=== PATIENT | female | born 1965 | race African-American/Black ===

== ENCOUNTER 2021-03-14 14:40 | Outpatient (CLI) | payer MEDICARE, MEDICAID, SELFPAY ==
--- NOTE | ~2021-03-14 | XR_ITS ---
EXAMINATION: XR knee RT min 4V DATE: 03/14/2021 15:17 INDICATION: Right knee pain TECHNIQUE: Weight bearing anteroposterior and Tate, sunrise, and flexed lateral views of the rig ht knee were obtained COMPARISON: None. FINDINGS: 3-4 mm lateral patellar subluxation. Alignment is otherwise normal. No fracture. Tricompartmental os teoarthritis characterized by nonuniform joint space narrowing and small marginal osteophytes. The marcello int space narrowing is moderate to severe in the lateral compartment best appreciated on the lateral and Tate projections. Some subarticular cystic change along the lateral tibial plateau. Mild humera nt space narrowing in the patellofemoral compartment. Soft tissues are unremarkable. No right knee marcello int effusion. IMPRESSION: 1. Right knee tricompartmental osteoarthritis, moderate to severe in the lateral compartment. Reviewed, dictated and finalized at location A. IMPRESSION: 1. Right knee tricompartmental osteoarthritis, moderate to severe in the latera l compartment.
--- NOTE | ~2021-03-14 | XR_ITS ---
EXAMINATION: XR knee LT min 4V DATE: 03/14/2021 15:17 INDICATION: Left knee pain TECHNIQUE: Weight bearing anteroposterior and Tate, sunrise, and flexed lateral views of the lef t knee were obtained COMPARISON: None. FINDINGS: Mild genu varus and slight lateral subluxation of the tibial plateau relative to the femoral condyles . There is also 5 mm lateral patellar subluxation. No fracture. Tricompartmental osteoarthritis herman cterized by nonuniform joint space narrowing and marginal osteophytes. The joint space narrowing is m oderate to severe in the medial compartment and mild to moderate in the patellofemoral compartment. T here is irregular cortical contour suggesting subarticular cystic change at the lateral trochlea. No left knee joint effusion. IMPRESSION: 1. Tricompartmental osteoarthritis at the left knee, moderate to severe in the medial compartment. Reviewed, dictated and finalized at location A.
--- NOTE | ~2021-03-14 | XR_ITS ---
EXAMINATION: XR lumbar spine 2-3V DATE: 03/14/2021 15:16 INDICATION: Low back pain TECHNIQUE: Anteroposterior and lateral views of the lumbar spine, and cone-down lateral view of the l umbosacral junction were obtained. COMPARISON: Lumbar spine radiographs dated 08/08/2016 and MRI dated 05/31/2016 FINDINGS: 10 degrees lumbar dextroscoliosis. Visualization of the lumbosacral junction is poor on the lateral p rojections to in part to body habitus. There appears to be approximately 12 mm anterolisthesis L5 on S1 along with an L5 compression fracture with approximately 50% posterior vertebral body height loss. Both findings appear chronic and not significantly changed since MRI dated 05/31/2016. Chronic bilate ral L5 pars interarticularis defects also better appreciated on prior MRI. Severe disc height loss at L5-S1. Mild to moderate disc height loss at L3-L4 and L4-L5. Moderate lower lumbar facet osteoarthri tis. Sacrum and bilateral sacroiliac joints are unremarkable. IMPRESSION: 1. Chronic bilateral L5 pars intra-articular is defects with 12 mm anterolisthesis L5 on S1 and chron ic posterior L5 compression fracture. 2. Severe lower lumbar spondylosis. Reviewed, dictated and finalized at location A. IMPRESSION: 1. Chronic bilateral L5 pars intra-articular is defects with 12 mm anterolisthe sis L5 on S1 and chronic posterior L5 compression fracture. 2. Severe lower lumbar spondylosis.
== END 2021-03-14 14:41 | disposition home or self-care (01) ==
LOC: ANHIMG 14:48
PROVIDERS: PCP Family Medicine Adolescent Medicine; Visit Provider Physician Assistant
DX: M47.896 Other spondylosis, lumbar region (principal); M17.0 Bilateral primary osteoarthritis of knee
CPT/HCPCS: 72100; 73564

== ENCOUNTER 2021-03-19 17:02 | Outpatient (CLI) | payer MEDICARE, MEDICAID, SELFPAY ==
--- NOTE | ~2021-03-19 | MM_ITS ---
EXAMINATION: MM screening chevy BI w lexy HISTORY: Screening TECHNIQUE: Craniocaudal and mediolateral oblique 3-D tomosynthesis images were obtained and synthetic 2-D images were generated. CAD analysis was submitted and interpreted. COMPARISON: No prior mammogram is available for comparison at this institution. BREAST PARENCHYMAL COMPOSITION: Breast composed of scattered areas of fibroglandular density. FINDINGS: There are multiple bilateral breast masses primarily involving the lateral aspect of both b reasts. There are no suspicious calcifications. No architectural distortion. IMPRESSION: 1. Multiple bilateral breast masses on superimposed fatty background. 2. Recommend bilateral breast ultrasound. BI-RADS Category 0: Incomplete: Needs additional imaging evaluation. Reviewed, dictated and finalized at location A.
== END 2021-03-19 17:03 | disposition home or self-care (01) ==
LOC: ANHIMG 17:06
PROVIDERS: PCP Family Medicine Adolescent Medicine; Visit Provider Physician Assistant
DX: Z12.31 Encounter for screening mammogram for malignant neoplasm of breast (principal)
CPT/HCPCS: 77063; 77067

== ENCOUNTER 2021-03-29 12:26 | Outpatient (CLI) | payer MEDICARE, MEDICAID, SELFPAY ==
--- NOTE | ~2021-03-29 | US_ITS ---
EXAMINATION: US breast BI limited HISTORY: Bilateral breast masses on screening mammogram TECHNIQUE: Limited bilateral breast ultrasound is performed. COMPARISON: Mammogram, 03/19/2021 FINDINGS: Right breast: There are multiple masses in the outer right breast with sonographic features consisten t with intramammary lymph nodes. No suspicious cystic or solid mass is identified. Left breast: There are multiple masses in the upper outer quadrant of the left breast sonographic fea tures consistent with intramammary lymph nodes. There is a 1.2 x 0.6 cm mass versus fibroglandular ti ssue at the 3:00 location 6 cm from the nipple. IMPRESSION: Bilateral breast lymph nodes accounting for all but one of the mammographic findings in question. Pos sible mass versus fibroglandular tissue at the 3:00 location in the left breast. Follow-up left diagn ostic mammogram and ultrasound in six months are recommended. BI-RADS category 3, probably benign findings. Reviewed, dictated and finalized at location A. IMPRESSION: Bilateral breast lymph nodes accounting for all but one of the mammographic fin dings in question. Possible mass versus fibroglandular tissue at the 3:00 locat ion in the left breast. Follow-up left diagnostic mammogram and ultrasound in s ix months are recommended. BI-RADS category 3, probably benign findings.
== END 2021-03-29 12:27 | disposition home or self-care (01) ==
PROVIDERS: PCP Family Medicine Adolescent Medicine; Visit Provider Physician Assistant
DX: R92.8 Other abnormal and inconclusive findings on diagnostic imaging of breast (principal)
CPT/HCPCS: 76642

== ENCOUNTER 2022-04-08 15:39 | Outpatient (CLI) | payer MEDICARE, MEDICAID, SELFPAY ==
--- NOTE | ~2022-04-08 | US_ITS ---
EXAMINATION: US pelvic complete w TV DATE: 04/08/2022 16:39 INDICATION: Abnormal uterine bleeding Comparison:Vaginal spotting TECHNIQUE: Multiple transabdominal and endovaginal sonographic images of the pelvis performed. FINDINGS: The uterus measures 8.4 x 4.1 x 4.9 cm. There is a uterine fibroid measuring 3.2 x 3.1 x 2. 5 cm. The endometrial complex measures 14 mm. The ovaries are not visualized. There is no free fluid in the pelvis. There are no abnormal masses seen on either side. IMPRESSION: 1. Thickened endomtrial complex. The differential diagnosis includes endometrial hyperplasia, polyp a nd carcinoma. Biopsy is recommended. 2: Uterine fibroid measuring 3.2 x 3.1 x 2.5 cm. Reviewed, dictated and finalized at location A. IMPRESSION: 1. Thickened endomtrial complex. The differential diagnosis includes endometria l hyperplasia, polyp and carcinoma. Biopsy is recommended. 2: Uterine fibroid measuring 3.2 x 3.1 x 2.5 cm.
== END 2022-04-08 15:40 | disposition home or self-care (01) ==
LOC: ANHIMG 15:42
PROVIDERS: PCP Family Medicine Adolescent Medicine; Visit Provider Nurse Practitioner
DX: N93.8 Other specified abnormal uterine and vaginal bleeding (principal); D25.9 Leiomyoma of uterus, unspecified
CPT/HCPCS: 76830; 76856

== ENCOUNTER 2022-05-08 13:31 | Outpatient (CLI) | payer MEDICARE, MEDICAID, SELFPAY ==
[2022-05-08 14:14] LABS: Anion Gap 7 mmol/L (8-16); Blood Urea Nitrogen 19 mg/dL (7-17); Calcium 8.9 mg/dL (8.4-10.2); Carbon Dioxide 33 mmol/L (22-30); Chloride 101 mmol/L (98-107); Estimated Glomerular Filt Rate > 60; Glucose 86 mg/dL (65-110); Potassium 4.2 mmol/L (3.4-5.0); Sodium 141 mmol/L (137-145)
== END 2022-05-08 13:32 | disposition home or self-care (01) ==
LOC: ANHSURGERY 13:39
PROVIDERS: Anesthesiology; PCP Family Medicine Adolescent Medicine; Visit Provider Obstetrics & Gynecology Gynecology
DX: E11.9 Type 2 diabetes mellitus without complications (principal); Z01.818 Encounter for other preprocedural examination
CPT/HCPCS: 36415; 80048

== ENCOUNTER 2022-05-12 02:44 | Day surgery (SDC) | payer MEDICARE, MEDICAID, SELFPAY ==
[2022-05-05 16:36] VITALS: BMI 51.5
--- NOTE | 2022-05-05 16:47 | PC.NURSE ---
Report to the Outpatient Waiting Room, entrance under the green pavilion located off [facility], at time ___12:30PM__ on date __3-36-18 . OR Time: __2:30PM_. - You and your visitor will be asked a series of questions to screen for COVID 19 for your protection. - Only one visitor is allowed at this time. - The patient visitor is requested to leave or wait in car when not with patient. - A mask is required within the hospital. Patients may have clear liquids (water, carbonated beverages, clear teas, apple juice) until 3 hours prior to surgery with a maximum of 20 ounces. NOTHING TO DRINK AFTER 11:30AM - No food from midnight until time of surgery - Infants may have breast milk until 4 hours before surgery, formula 6 hours prior to surgery. - Children will be allowed to drink immediately following surgery. If applicable, please bring a bottle or sippy cup to assist with drinking. Juice, water, soda, and popsicles are readily available. For infants on formula, please bring formula the day of surgery. Pacifiers are allowed. Take the following medications with a SIP of water the morning of surgery: AS NEEDED INHALER AND PAIN PILL____ Medications to discontinue per physician N/A Date to take last dose N/A Please no make-up, nail belgian, hairspray, perfume, deodorant, or body powder the day of surgery. No jewelry (including any body piercings) or valuables the day of surgery, leave them at home. Please take a shower or bath the night before, or the morning of, surgery with an antibacterial soap. Wear comfortable, loose fitting clothing. Children are encouraged to wear pajamas. - Jewelry must be removed prior to entering the operating room. Rings and piercings that are not removed may be cut off. - The hospital will not accept responsibility for valuables. - Please leave all valuables, including medications, at home the day of surgery. If you are going home after surgery, a licensed class c driver must drive you home. - NO public transportation without another adult. - We recommend that an adult stay with you for 24 hours following discharge. - We also recommend that you do not drive, make important decision, drink alcoholic beverages, or take any drugs that were not prescribed by your health care provider for at least 24 hours after your discharge time. For Pediatric surgeries, we recommend two adults accompany the child home (only one inside the building at this time). Follow any additional instructions given to you from your surgeon. If you or anyone in your household have experienced Covid symptoms in the past week, please notify your surgeon or the nurse liaison at the phone number below for possible testing. Telephone instructions given to PATIENT and asked if any additional questions and then verbalized understanding. Patient advised to call surgeon office or pre surgery nurse liaison [phone] if any additional questions.
--- NOTE | 2022-05-12 10:37 | WPDHPUPDATE1 ---
History and Physical Update Update Date/Time: 05/12/22 10:37 History and Physical has been reviewed, including an updated exam of the patient. There are NO changes in the patient's condition. Risks, benefits, and alternatives have been discussed and questions answered. Patient agrees to proceed with procedure.
--- NOTE | 2022-05-12 10:38 | PM.HPGS ---
History of Present Illness History of Present Illness Consent: Risks, benefits, and alternatives have been discussed and questions answered. Patient agrees to proceed with procedure. Chief complaint: post menopausal bleeding Narrative: Sharmin Trujillo is a 57 year old female with vaginal bleeding for 1 month on and off. Pelvic ultrasound reveals the endometrium to be 14mm. It was recommended to proceed with D&C hysteroscopy. Risks of infection, bleeding, and perforation were reviewed. Possible pathology was discussed. Patient voiced understanding and agrees to proceed. Review of Systems Constitutional: Constitutional: Reports night sweats Musculoskeletal: Musculoskeletal: Reports arthralgias [facility] Past Medical History Medical History (Updated 05/12/22 @ 10:40 by Julia Escalante MD) Diabetes type 2, controlled Hypertension Mild intermittent asthma Surgical History Surgical History History of neck surgery Family History Family History (Updated 02/18/22 @ 15:11 by Jacqui Correa MA) Mother Cerebrovascular accident Diabetes mellitus Hypertension Sibling Cerebrovascular accident Father Heart disease Other Breast cancer Social History Social History (Updated 02/18/22 @ 15:12 by Jacqui Correa MA) Smoking packs per day: 0.5 Smoking cigarettes per day: 10.0 Years smoked: 10 Smoking pack-years: 5.00 Smoking status: Former smoker Tobacco type: cigarettes Second hand tobacco smoke exposure: No Smoking end date: 11/16/15 Alcohol intake: never Substance use: never Substance use type: does not use Living arrangements: with family Additional occupation/education comments: Disability Gender identity (if verbalized by the patient): Female Sexual Orientation (if Verbalized by the Patient): Lesbian, Baker, or Homosexual Spiritual care concerns: No Agree to blood products: Yes Meds Home Medications and Allergies Home Medications Medication Instructions Recorded Confirmed Type glimepiride 2 mg tablet 2 mg PO QAM #90 tabs 02/06/22 05/05/22 Rx sitagliptin 100 mg tablet (Januvia) 100 mg PO DAILY #90 tabs 02/06/22 05/05/22 Rx albuterol sulfate 90 mcg/actuation 1 puff inhalation Q4H PRN 02/18/22 05/05/22 History aerosol inhaler (Ventolin HFA) Shortness Of Breath fluticasone 250 mcg-salmeterol 50 1 inh inhalation BID PRN Shortness 02/18/22 05/05/22 History mcg/dose blistr powdr for Of Breath inhalation (Advair Diskus) lisinopril 20 2 tablet PO DAILY 02/18/22 05/05/22 History mg-hydrochlorothiazide 12.5 mg tablet diclofenac sodium 75 mg 75 mg PO BID #180 tabs 03/03/22 05/05/22 Rx tablet,delayed release pseudoephedrine HCl 120 mg 120 mg PO BID #60 tabs 03/03/22 05/05/22 Rx tablet,extended release hydrocodone 10 mg-acetaminophen 1 tablet PO Q6H PRN pain #120 tabs 03/25/22 05/05/22 Rx 325 mg tablet gabapentin 300 mg capsule 600 mg PO .COMPLEX #300 caps 04/07/22 05/05/22 Rx atorvastatin 10 mg tablet 10 mg PO DAILY #30 tabs 04/09/22 05/05/22 Rx melatonin 10 mg tablet 10 mg PO HS PRN Insomnia 05/05/22 05/05/22 History paroxetine HCl 20 mg tablet 20 mg PO DAILY #90 tabs 05/05/22 05/05/22 Rx triamcinolone acetonide 0.1 % 1 applic topical BID PRN 05/05/22 05/05/22 History topical cream Hemorrhoids Allergies Allergy/AdvReac Type Severity Reaction Status Date / Time duloxetine Allergy Intermediate Vomiting Verified 05/05/22 16:24 amoxicillin [From Amoxil] Allergy Mild Nausea and Verified 05/05/22 16:24 Vomiting Exam Const: General: healthy appearing and alert Orientation/consciousness: patient oriented x3 GI: GI Palp: Yes Soft to palpation, No Tenderness to palpation present (GI) and No Palpable mass present : External Female Exam: normal external appearance Speculum Exam - Vagina: normal appearance of the vagina and normal vaginal discharge Speculum Exam - Cervix: n
[2022-05-12] MEDS: ACETAMINOPHEN 500 MG TABLET 1000 MG PO (12:14)
[2022-05-12] MEDS: LACTATED RINGERS 1,000 ML 30 ML IV CONT (12:14)
[2022-05-12 12:17] LABS: Glucose Point of Care 96 mg/dl (65-105)
[2022-05-12 12:25] VITALS: BP 117/73; PULSE 74; RESP 20; TEMP 36.2; O2SAT 98
--- NOTE | 2022-05-12 12:29 | WPDANESEPPF ---
Anes - Initial Pre Proc Eval Procedure: Operation Date: 05/12/22 14:30 Proposed Procedures p Hysteroscopy Dilation and Curettage - Julia Escalante MD Date/Time: 05/12/22 12:29 Surgeon: Julia Escalante MD Pre Op Diagnosis: post menopausal bleeding Patient Data Age: 57 Gender: F Height: 1.68 m Weight: 145 kg Last Vital Signs Temp 36.2 C L 05/12/22 12:25 Pulse 74 05/12/22 12:25 Resp 20 05/12/22 12:25 BP 117/73 05/12/22 12:25 Pulse Ox 98 05/12/22 12:25 O2 Del Method Room Air 05/12/22 12:25 Allergies Allergy/AdvReac Type Severity Reaction Status Date / Time duloxetine Allergy Intermediate Vomiting Verified 05/12/22 12:23 amoxicillin [From Amoxil] Allergy Mild Nausea and Verified 05/12/22 12:23 Vomiting Home Medications Medication Instructions Recorded Confirmed Type glimepiride 2 mg tablet 2 mg PO QAM #90 tabs 02/06/22 05/12/22 Rx sitagliptin 100 mg tablet (Januvia) 100 mg PO DAILY #90 tabs 02/06/22 05/12/22 Rx albuterol sulfate 90 mcg/actuation 1 puff inhalation Q4H PRN 02/18/22 05/12/22 History aerosol inhaler (Ventolin HFA) Shortness Of Breath fluticasone 250 mcg-salmeterol 50 1 inh inhalation BID PRN Shortness 02/18/22 05/12/22 History mcg/dose blistr powdr for Of Breath inhalation (Advair Diskus) lisinopril 20 2 tablet PO DAILY 02/18/22 05/12/22 History mg-hydrochlorothiazide 12.5 mg tablet diclofenac sodium 75 mg 75 mg PO BID #180 tabs 03/03/22 05/12/22 Rx tablet,delayed release pseudoephedrine HCl 120 mg 120 mg PO BID #60 tabs 03/03/22 05/12/22 Rx tablet,extended release hydrocodone 10 mg-acetaminophen 1 tablet PO Q6H PRN pain #120 tabs 03/25/22 05/12/22 Rx 325 mg tablet gabapentin 300 mg capsule 600 mg PO .COMPLEX #300 caps 04/07/22 05/12/22 Rx atorvastatin 10 mg tablet 10 mg PO DAILY #30 tabs 04/09/22 05/12/22 Rx melatonin 10 mg tablet 10 mg PO HS PRN Insomnia 05/05/22 05/12/22 History paroxetine HCl 20 mg tablet 20 mg PO DAILY #90 tabs 05/05/22 05/12/22 Rx triamcinolone acetonide 0.1 % 1 applic topical BID PRN 05/05/22 05/12/22 History topical cream Hemorrhoids Laboratory Tests 05/12/22 12:12 POC Capillary Glucose 96 mg/dl mg/dl (65-105) Patient hx anesthesia problems: none Family hx anesthesia problems: none Results Review: All pre-operative results and documents have been reviewed as part of the pre-operative evaluation. [facility] Past Medical History Medical History Diabetes type 2, controlled Hypertension Mild intermittent asthma Obstructive sleep apnea Surgical History Surgical History History of neck surgery Family History Family History Mother Cerebrovascular accident Diabetes mellitus Hypertension Sibling Cerebrovascular accident Father Heart disease Other Breast cancer Social History Social History Smoking packs per day: 0.5 Smoking cigarettes per day: 10.0 Years smoked: 10 Smoking pack-years: 5.00 Smoking status: Former smoker Tobacco type: cigarettes Second hand tobacco smoke exposure: No Smoking end date: 11/16/15 Alcohol intake: never Substance use: never Substance use type: does not use Living arrangements: with family Additional occupation/education comments: Disability Gender identity (if verbalized by the patient): Female Sexual Orientation (if Verbalized by the Patient): Lesbian, Baker, or Homosexual Spiritual care concerns: No Agree to blood products: Yes Anes - Eval Final PreProcedure Day of Procedure 05/12/22 12:29 Patient weight: super morbidly obese Heart: regular rate and rhythm Lungs: decreased breath sounds Airway: Mallampati scale class II Neurological: alert and oriented Last oral inta
[2022-05-12 15:46] VITALS: BP 141/104; PULSE 79; RESP 18; O2SAT 95
--- NOTE | 2022-05-12 15:48 | W.PM.PROC2 ---
Procedure Note - Detailed Date of Procedure 05/12/22 Pre-op Diagnosis post menopausal bleeding Post-op Diagnosis Same Procedure Performed D&C hysteroscopy with MyoSure resection of large endometrial polyp Surgeon Julia Escalante MD Anesthesia MAC and Local Findings Uterus sounds to 8.5cm. There is a polyp filling the majority of the cavity with calcifications and large blood vessels. Description of Procedure The patient was taken to the operating room and placed under anesthesia in the dorsal lithotomy position. She was prepped and draped in usual sterile fashion. [place] speculum was placed in the vagina and the cervix was grasped on the anterior lip with a tenaculum. The cervix is injected in each quadrant with 1% lidocaine. The uterus is sounded to 8.5cm. The cervix is serially dilated to an 8 [place]. The diagnostic hysteroscope was placed with the stated findings. The MyoSure scope and device are opened and placed and under direct visualization the polyp was removed in its entirety. The remainder of the cavity appears atrophic once the polyp was removed and the cavity was visible. The instruments are removed and the sharp curette used to curette the endometrium until a good uterine cry is noted in all areas. Minimal material was obtained consistent with the atrophic appearance. All instruments are removed. Sponge, needle, and instrument counts are correct per the OR staff. The patient is awakened from anesthesia and taken to recovery in stable condition. Estimated Blood Loss 5 Drains No Packing No Pathology Yes (Endometrial shavings and curettings) Complications No immediate complications Condition Stable Disposition PACU
[2022-05-12 15:54] LABS: Glucose Point of Care 88 mg/dl (65-105)
[2022-05-12 16:15] VITALS: BP 135/95; PULSE 55
[2022-05-12] MEDS: oxyCODONE HCL (*CRX) 5 MG TAB IR PO (16:16)
[2022-05-12 16:45] VITALS: BP 122/72; PULSE 58
== END 2022-05-12 16:55 | disposition home or self-care (01) ==
PROVIDERS: PCP Family Medicine Adolescent Medicine; Visit Provider Obstetrics & Gynecology Gynecology
PROC: 0U5B8ZZ Destruction of Endometrium, Via Natural or Artificial Opening Endoscopic (ICD-10-PCS; CPT 58563; principal; 2022-05-12 14:30)
DX: N95.0 Postmenopausal bleeding (principal); N84.0 Polyp of corpus uteri; I10 Essential (primary) hypertension; E11.9 Type 2 diabetes mellitus without complications; J45.20 Mild intermittent asthma, uncomplicated; Z87.891 Personal history of nicotine dependence; Z79.84 Long term (current) use of oral hypoglycemic drugs; Z79.51 Long term (current) use of inhaled steroids; G47.33 Obstructive sleep apnea (adult) (pediatric); E66.01 Morbid (severe) obesity due to excess calories; Z68.43 Body mass index [BMI] 50.0-59.9, adult
CPT/HCPCS: 58558; 82948; 88305; A9270; J2250; J2704; J3010; J7120

== ENCOUNTER 2023-02-16 12:26 | Emergency (ER) | payer MEDICARE, MEDICAID, SELFPAY ==
--- NOTE | ~2023-02-16 | CT_ITS ---
EXAMINATION: CT pelvis wo con DATE: 02/16/2023 14:54 INDICATION: Pelvic pain radiating down the right leg. TECHNIQUE: Computed tomography (CT) of the pelvis was performed without intravenous contrast. Automat ed exposure control and iterative reconstruction technique were employed. The dose-length product was 834.31 mGy-cm. COMPARISON: None FINDINGS: There is diverticulosis of the colon without evidence of diverticulitis. There are no patho logically enlarged lymph nodes. There is no free intraperitoneal fluid. Pelvic floor dysfunction is n oted. There is severe lower lumbar spondylosis. There are chronic bilateral L5 pars defects with grad e 2 anterolisthesis of L5 on S1. No acute fracture. There is a benign bone island in right parasymphy seal pubis. There is mild osteoarthritis of the hips and moderate osteoarthritis of the sacroiliac marcello ints. Osseous pubis is noted. IMPRESSION: 1. Mild osteoarthritis of the hips. Reviewed, dictated and finalized at location A.
--- NOTE | ~2023-02-16 | CT_ITS ---
EXAMINATION: CT lumbar spine wo con DATE: 02/16/2023 14:54 INDICATION: Lumbar degenerative joint disease. Pain radiating down the right leg. TECHNIQUE: Computed tomography (CT) of the lumbar spine was performed without intravenous contrast. A utomated exposure control and iterative reconstruction technique were employed. The dose-length produ ct was 1239.51 mGy-cm. COMPARISON: Lumbar spine radiographs 03/14/2021 FINDINGS: There is 8 degrees dextrocurvature of lumbar spine. There are chronic bilateral L5 pars def ects. There is 7 mm anterolisthesis of L5 on S1. There is severely decreased disc height at L5-S1 wit h endplate remodeling and chronic 2/5 height loss of L5 vertebral body posteriorly. There is mildly d ecreased disc height at L3-L4 and L4-L5. The following disc levels are specifically discussed: L1-L2: The disc does not extend beyond the endplate margin. There is mild bilateral facet joint osteo arthritis. There is no neural foraminal stenosis. There is no central canal stenosis. L2-L3: The disc is bulging. There is moderate bilateral facet joint osteoarthritis. There is mild ariana ateral neural foraminal stenosis. There is mild central canal stenosis. L3-L4: The disc is bulging. There is moderate bilateral facet joint osteoarthritis. There is mild ariana ateral neural foraminal stenosis. There is mild central canal stenosis. L4-L5: The disc is bulging. There is moderate bilateral facet joint osteoarthritis. There is mild ariana ateral neural foraminal stenosis. There is mild central canal stenosis. L5-S1: The disc is bulging. There is severe bilateral facet joint osteoarthritis. There is moderate b ilateral neural foraminal stenosis. There is mild central canal stenosis. IMPRESSION: 1. Severe lower lumbar spondylosis. 2. Chronic bilateral L5 pars defects with grade 2 anterolisthesis of L5 on S1. Reviewed, dictated and finalized at location A.
[2023-02-16 13:32] VITALS: BP 137/85; PULSE 77; RESP 16; TEMP 36.9; O2SAT 98
--- NOTE | 2023-02-16 14:26 | ED.BACK ---
HPI - Back Pain/Injury General Chief Complaint: Back Pain/Injury Stated Complaint: back pain-fall Time Seen by Provider: 02/16/23 13:47 History of Present Illness HPI Narrative: This is a 57-year-old female who presents to the ED with chief complaint of acute on chronic low back pain. Patient reports that she did suffer a mechanical fall yesterday in which she landed on her right low back and buttock. She now has radiating pain into the right lower extremity posteriorly that does not extend past the knee. Reports that she has had this pain in the past. Denies saddle anesthesia or urinary problems. Denies numbness or weakness. Minimal relief with [place], muscle relaxers, gabapentin Related Data Home Medications Medication Instructions Recorded Confirmed melatonin 10 mg tablet 10 mg PO HS PRN Insomnia 05/05/22 02/09/23 triamcinolone acetonide 0.1 % 1 applic topical BID PRN 05/05/22 02/09/23 topical cream Hemorrhoids Allergies Allergy/AdvReac Type Severity Reaction Status Date / Time duloxetine Allergy Intermediate Vomiting Verified 02/16/23 13:34 amoxicillin [From Amoxil] Allergy Mild Nausea and Verified 02/16/23 13:34 Vomiting Review of Systems Review of Systems: CONSTITUTIONAL: Denies fever, chills, or sweats. SKIN: Denies rash or itching. MUSCULOSKELETAL: Endorses low back pain. Endorses radicular pain. denies joint pain, or myalgia. NEUROLOGIC: Denies headache, numbness, dizziness, or weakness. PSYCHIATRIC: Denies anxiety or depression. [facility] Past Medical History Medical History Diabetes type 2, controlled Hypertension Mild intermittent asthma Obstructive sleep apnea Surgical History Surgical History History of neck surgery Family History Family History Mother Cerebrovascular accident Diabetes mellitus Hypertension Sibling Cerebrovascular accident Father Heart disease Other Breast cancer Social History Social History Smoking packs per day: 0.5 Smoking cigarettes per day: 10.0 Years smoked: 10 Smoking pack-years: 5.00 Smoking status: Former smoker Tobacco type: cigarettes Second hand tobacco smoke exposure: No Smoking end date: 11/16/15 Alcohol intake: never Substance use: never Substance use type: does not use Living arrangements: with family Additional occupation/education comments: Disability Gender identity (if verbalized by the patient): Female Sexual Orientation (if Verbalized by the Patient): Lesbian, Baker, or Homosexual Spiritual care concerns: No Agree to blood products: Yes Exam Narrative: GENERAL: Well-appearing, well-nourished, and in no acute distress. HEAD: Normocephalic, atraumatic. EYES: PERRLA and EOMI. ENT: Nares clear, no rhinorrhea or epistaxis. Mucous membranes moist. Oropharynx without tonsillar hypertrophy exudate or other lesions. NECK: Supple. No adenopathy or masses. EXTREMITIES: Mild right paraspinal lumbar tenderness. Mild right SI tenderness. Normal range of motion. No edema. 5 out of 5 strength and sensation in the lower extremities bilaterally No cervical or thoracic tenderness. SKIN: Warm, dry, no rash. NEURO: Alert and oriented x3. No focal deficits. Coordination intact. Ambulatory PSYCH: Normal mood and affect. Course Vital Signs Vital signs: Vital Signs Temperature 98.4 F 02/16/23 13:32 Pulse Rate 77 02/16/23 13:32 Respiratory Rate 16 02/16/23 13:32 Blood Pressure 137/85 02/16/23 13:32 Pulse Oximetry 98 02/16/23 13:32 Temperature 98.4 F 02/16/23 13:32 Pulse Rate 77 02/16/23 13:32 Respiratory Rate 16 02/16/23 13:32 Blood Pressure 137/85 02/16/23 13:32 Pulse Oximetry 98 02/16/23 13:32 MDM - Back Pain/Injury MDM Narrative Medical de
[2023-02-16] MEDS: KETOROLAC (*BKC) 60 MG/2 ML VIAL IM (15:01)
[2023-02-16] MEDS: HYDROcodone/acetaminophen (*CRX) 10-325 MG TABLET 1 TAB PO (15:02)
== END 2023-02-16 15:37 | disposition home or self-care (01) ==
PROVIDERS: Emergency Provider Physician Assistant; PCP Family Medicine Adolescent Medicine
DX: M54.16 Radiculopathy, lumbar region (principal); S39.012A Strain of muscle, fascia and tendon of lower back, initial encounter; G89.29 Other chronic pain; E11.9 Type 2 diabetes mellitus without complications; I10 Essential (primary) hypertension; J45.20 Mild intermittent asthma, uncomplicated; G47.33 Obstructive sleep apnea (adult) (pediatric); Z87.891 Personal history of nicotine dependence; Z79.84 Long term (current) use of oral hypoglycemic drugs; W19.XXXA Unspecified fall, initial encounter
CPT/HCPCS: 72131; 72192; 96372; 99284; A9270; J1885

== ENCOUNTER → 2023-02-28 09:01 | Outpatient (CLI) | payer MEDICARE, MEDICAID, SELFPAY ==
--- NOTE | ~2023-02-28 | MR_ITS ---
MRI of the lumbar spine Clinical History: Chronic back pain Technique: Axial T2-weighted images, and sagittal T1-weighted, T2-weighted, and T2 fat-sat images wer e acquired. COMPARISON: 05/31/2016 Findings: Bilateral L5 pars interarticularis defects are present, with 11 mm anterolisthesis of L5 ov er S1. No suspicious bone marrow signal abnormality seen. No other fracture or listhesis evident in t he remainder of the lumbar spine. At L1-L2 and L2-L3, there is no disc bulge or herniation. There are mild facet joint hypertrophic aleksey nges at these levels. No spinal canal stenosis or definite neural foraminal narrowing at these levels . At L3-L4, there is mild disc bulge, with superimposed focal right paracentral inferior disc extrusion , which probably impinges the descending right-sided L4-L5 level nerve root. No brittnee spinal canal st enosis at this level. There is mild bilateral neural foraminal narrowing. At L4-L5, there is disc bulge, somewhat eccentric to the right paracentral/right foraminal region. No spinal canal stenosis present. There is moderate bilateral neural foraminal narrowing. At L5-S1, disc uncovering and facet arthropathy result in moderate to severe spinal canal stenosis. T here is severe bilateral neural foraminal compromise. Paravertebral soft tissues are unremarkable.. Impression: Bilateral L5 pars interarticularis defects, with 11 mm anterolisthesis of L5 over S1. Moderate to severe spinal canal stenosis at L5-S1 with severe bilateral neural foraminal narrowing. Focal right paracentral disc extrusion at L3-L4, extending inferiorly, and probably impinging the colleen cending right-sided L4-L5 level nerve root. Additional mild degenerative changes in the lumbar spine, as detailed above. Reviewed, dictated and finalized at [facility]. Impression: Bilateral L5 pars interarticularis defects, with 11 mm anterolisthesis of L5 ov er S1. Moderate to severe spinal canal stenosis at L5-S1 with severe bilateral neural foraminal narrowing. Focal right paracentral disc extrusion at L3-L4, extending inferiorly, and prob ably impinging the descending right-sided L4-L5 level nerve root. Additional mild degenerative changes in the lumbar spine, as detailed above.
--- NOTE | ~2023-02-28 | XR_ITS ---
Right Shoulder Technique: AP and axillary views were obtained. Clinical History: Pain Findings: No fracture or dislocation is seen. Osseous alignment is anatomic. Mild degenerative change of the AC joint noted. Moderate to glenohumeral joint degenerative change present. Soft tissues are unremarkable. Impression: Moderate to advanced clinical joint degenerative change. Mild AC joint degenerative change. No fracture or subluxation. Reviewed, dictated and finalized at location . Impression: Moderate to advanced clinical joint degenerative change. Mild AC joint degenerative change. No fracture or subluxation.
== END ==
PROVIDERS: PCP Family Medicine Adolescent Medicine; Visit Provider Family Medicine Adolescent Medicine
DX: M25.511 Pain in right shoulder (principal); M54.31 Sciatica, right side; M54.32 Sciatica, left side; M54.16 Radiculopathy, lumbar region; M43.16 Spondylolisthesis, lumbar region; M48.07 Spinal stenosis, lumbosacral region; M51.36 Other intervertebral disc degeneration, lumbar region; M85.88 Other specified disorders of bone density and structure, other site
CPT/HCPCS: 72148; 73030

== ENCOUNTER 2023-06-23 13:30 | Outpatient (RCR) | payer MEDICARE, MEDICAID, SELFPAY ==
--- NOTE | 2023-04-28 15:46 | PTOPEVAL1 ---
Assessment and note entered by Jenni Almazan, PT Evaluation Information Assessment Status Evaluation Diagnosis lumbar spondylosis, R shoulder pain Onset 2 months ago Subjective Information Patient reports 2 months ago she lifted a heavy object which caused the back pain. Following injury patient experienced a fell when in standing at sink and her R leg gave out when turning. Patient reports mid back pain with radiating pain down R leg, pain is currently reported as 7/10. Patient reports that sweeping at home, bending during chores, and prolonged standing have become difficult. Patient goal is to return to daily chores without pain. Patient also reports R shoulder pain with unknown onset of pain, xray showed arthritic changes in acromioclavicular joint. R shoulder pain is 9/10. Patient limits chores and lifting within home, goal is to decrease pain. Reported Pain Level Pain Score 8,9: Self Report Assessment PT Clinical Summary Patient is 58 year old female referred to physical therapy due to low back pain and R shoulder pain. Back pain and R shoulder pain currently limit her ability to exercise and perform chores in home. Patient presents with decrease core and lower extremity strength, decreased lumbar spine mobility, postural impairments causing back pain and radicular symptoms into R leg. Patient R shoulder presents with decreased active/passive range of motion and R shoulder weakness. Patient is good candidate for both aquatic and traditional physical therapy services, recommending skilled PT 2x/wk for 4 weeks for strengthening of core/ lower extremities/R shoulder, increased R shoulder range of motion, and to decrease pain in back/ shoulder in order to return to chores and exercise at home. Plan of Care Interventions Aquatic Therapy,Gait Training,Hot Pack/Cold Pack, Manual Therapy,Neuro Re-education,Patient/ Caregiver Education,Therapeutic Activities, Therapeutic Exercise PT Services Indicated Yes Treatment Frequency and 2x/wk for 4 weeks Duration These treatments will address the objective and functional deficits as defined above. The patient will be advanced safely and appropriately in order for the patient to progress towards his/her prior level of function. Additional exercises wi
--- NOTE | 2023-04-28 15:47 | OPREHPOC ---
Outpatient Therapy Plan of Care This is a Multidisciplinary Plan of Care that may contain components documented by all disciplines (PT, OT, and ST.) PT Problem 1 PT Problem #1 Knowledge Deficit PT Goal 1 Goal Patient will demonstrate independence with home exercise program PT Problem 2 PT Problem #2 Impaired Strength PT Goal 1 Goal back 1. Patient will perform BLE single leg stance 10 seconds 2. Patient will perform 20 reps RLE straight leg raise 3. Patient will perform 20 reps RLE prone hip extension shoulder 1. Patient will demonstrate R shoulder flexion strength of 4/5 PT Problem 3 PT Problem #3 Pain PT Goal 1 Goal 1. Patient will demonstrate back pain 3/10 with walking 2. Patient will tolerate walking 1 block with pain rated as 3/10 2. Patient will report decrease in R leg pain to 3 /10 shoulder: 1. Patient will decrease R shoulder pain to 3/10 PT Problem 4 PT Problem #4 Impaired Flexibility PT Goal 1 Goal 1. Patient will demonstrate R shoulder flexion AROM 120 degrees without pain 2. Patient will demonstrate R shoulder scaption AROM 120 degrees without pain
--- NOTE | 2023-05-26 14:54 | PTOPPROG ---
Assessment and note entered by Jenni Almazan, PT Evaluation Information Assessment Status Progress Diagnosis back pain, shoulder pain Onset 2 months ago Subjective Information patient believes that aquatic therapy has been helping significantly. Patient denies radiating symptoms into RLE at this time. Patient states that she has been very compliant with her home exercises and also has noticed improved ability to walk at home. Patient reports that her R ankle has gotten floppy with walking recently. Assessment PT Clinical Summary Patient has been participating in physical therapy to reduce back pain/shoulder pain, improve ability to walk increased distances, and improve LE/RUE strength. Patient has demonstrated improvements in BLE and R shoulder strength, balance indicated by ability to perform single leg stance of 3 seconds bilaterally, and improved ability to ambulate. Patient reports reduction in both back and R shoulder pain as well as relief in her RLE radicular symptoms. Patient continues to demonstrate BLE weakness and difficulty with gait/ balance. Recommending continued therapy 2x/wk for 4 weeks with aquatic therapy to improve mobility/ strength in order to improve independence with community mobility. Patient experiencing increased R foot drop with gait on this date educated to notify MD if continues. Goals modified to include 2 minute walk test at this time. Plan of Care Interventions Aquatic Therapy PT Services Indicated Yes Treatment Frequency and 2x/wk for 4 weeks Duration These treatments will address the objective and functional deficits as defined above. The patient will be advanced safely and appropriately in order for the patient to progress towards his/her prior level of function. Additional exercises will be introduced and as well as a comprehensive home exercise program upon discharge, if needed, ?to ensure carryover of functional gains achieved in the clinic. This treatment plan has been reviewed and agreement upon by the patient.
--- NOTE | 2023-06-11 10:16 | PCPTNOTE ---
05/26 PT charge error. Patient charge for mod complexity eval has been deleted.
--- NOTE | 2023-06-23 14:32 | PTOPDC ---
Assessment and note entered by Jenni Almazan, PT Evaluation Information Assessment Status Progress Diagnosis back pain, shoulder pain Onset 2 months ago Subjective Information patient reports that she feels the aquatic therapy has been working well. patient reports improved ability to perform daily chores at home such as sweeping and laundry and reports she is now able to stand for prolonged periods of time. R shoulder continues to limit overhead lifting during tasks. Patient reports she has been able to walk dogs increased distances for 35-40 minutes. Reported Pain Level Pain Score 1,0: Self Report Assessment PT Clinical Summary Patient has been participating in PT services to improve lower extremity/upper extremity strength and decrease pain. Patient reports decreased pain, has improved ability to ambulate increased distances in community, and has improve lower/ upper extremity range of motion and strength. 2 minute walk test goal met at this time. Patient has achieved maximum benefit from PT services at this time, will DC from PT goals partially met. Educated patient to notify MD if changes in status occurs. Plan of Care PT Services Indicated No
== END 2023-07-07 13:47 | disposition home or self-care (01) ==
LOC: ANHPT 13:30
PROVIDERS: PCP Family Medicine Adolescent Medicine; Visit Provider Neurological Surgery
DX: M47.817 Spondylosis without myelopathy or radiculopathy, lumbosacral region (principal)
CPT/HCPCS: 97110; 97113; 97162; 97530; 97750

== ENCOUNTER 2024-06-30 14:45 | Outpatient (CLI) | payer MEDICARE, MEDICAID, SELFPAY ==
--- NOTE | ~2024-06-30 | XR_ITS ---
XR foot LT 2V Ordering provider: Ginny Conde APRN History: . M53.202 - Pain in left foot . Comparison: None. FINDINGS: BONES: Lateral subluxation of the distal interphalangeal joint of the big toe is noted with a small c hip of bone. Otherwise, No acute fracture or dislocation. Calcaneus spur. JOINT SPACES: Narrowing of the big toe interphalangeal joint. No tarsal coalition. SOFT TISSUES: Soft tissue swelling over the interphalangeal joint of the big toe. IMPRESSION: Bilateral subluxation of the distal phalanx of the big toe with a small chip fracture seen in the are a laterally. Reviewed, dictated and finalized at location A. IMPRESSION: Bilateral subluxation of the distal phalanx of the big toe with a small chip fr acture seen in the area laterally.
== END 2024-06-30 14:46 ==
LOC: MICIMG 14:47
PROVIDERS: PCP Family Medicine Adolescent Medicine; Visit Provider Nurse Practitioner Family
DX: M79.672 Pain in left foot (principal)
CPT/HCPCS: 73620